=== PATIENT | male | born 1975 | race Two or more races ===

== ENCOUNTER 2022-02-15 08:00 | Outpatient (CLI) | payer OTHER | END 2022-02-15 23:59 | disposition home or self-care (01) | LOC: LAB 08:00 | PROVIDERS: ATTEND Specialist | DX: Z01.812 Encounter for preprocedural laboratory examination (principal); Z20.822 Contact with and (suspected) exposure to COVID-19 | CPT/HCPCS: U0003; C9803 ==

== ENCOUNTER 2022-02-19 05:13 | Day surgery (SDC) | payer OTHER ==
[~2022-02-19 05:13] MED LIST: ANESTHESIA TRAY IN PYXIS 1 EA TRAY MC ONE
--- NOTE | 2022-02-19 06:00 | NUR ---
MS RN NOTES RECEIVED AMBULATORY DAY SURGERY,A/O X4,NO SOB,GOING FOR RIGHT SHOULDER ARTHROSCOPY,ACROMIOPLASTY,MAJOR DEBRIDEMENT UNDER DR SUTTON,TO FOLLOW CASE.CONSENT ON CHART,WITH KNOWN ALLERGY TO XARELTO AND PENICILLIN.AWAITING TO BE MEDICAL RECEPTIONIST ASSISTANT TO OR.
[2022-02-19] MEDS ORDERED: BUPIVACAINE 0.5 % PF 150 MG/30 ML VIAL ONE (06:37)
[2022-02-19] MEDS ORDERED: methylPREDNISolone ACETATE 80 MG/ML VIAL ONE (06:37)
[2022-02-19] MEDS ORDERED: EPINEPHRINE (1:1000) 1 MG/ML AMPUL ONE (06:37)
[2022-02-19] MEDS ORDERED: BUPIVACAINE 0.25% 75 MG/30 ML VIAL ONE (06:38)
--- NOTE | 2022-02-19 06:50 | NUR ---
MS DAY SURGERY NURSE REPORTED BY ELIGIO FERMIN,PATIENT HAS 175.00 DOLLARS,ACCOUNTED BY ELIGIO,REFUSED TO BE TAKEN TO SAFE.
[2022-02-19] MEDS ORDERED: ROCURONIUM BROMIDE 50 MG/5 ML ONE (08:22)
[2022-02-19] MEDS ORDERED: MIDAZOLAM HCL 2 MG/2ML VIAL ONE (08:22)
[2022-02-19] MEDS ORDERED: HYDROMORPHONE INJ 2 MG/ML DISP.SYRIN ONE (08:22)
[2022-02-19] MEDS ORDERED: FAMOTIDINE/PF INJ 20 MG/2 ML VIAL IV ONE (08:22)
[2022-02-19] MEDS ORDERED: CLINDAMYCIN IV RTU IN D5W 50 ML ONE (08:25)
[2022-02-19] MEDS ORDERED: HYDROCODONE/APAP 5/325MG TABLET PO PRN (10:00)
[2022-02-19] MEDS ORDERED: HYDROMORPHONE 1 MG/1 ML DISP.SYRIN ONE (10:00)
--- NOTE | 2022-02-19 10:25 | NUR ---
RN NOTES PATIENT IS BACK FROM RECOVERY ROOM POST RIGHT SHOULDER ATHROSCOPY WITH ACROMIOPLASTY AND MAJOR DEBRIDEMENT ENDORSED BY CANDICE SERVIN. PATIENT IS AWAKE AND A/O X4. ON ROOM AIR TOLERATING WELL. NO SOB NOTED. NOT IN DISTRESS. PATIENT IS REQUESTING FOR DR. SUTTON TO CHANGE HIS PRN PAIN MEDICATION FROM NORCO TO PERCOCET. LEFT A MESSAGE TO HIS OFFICE REGARDING PATIENT'S CONCERN. VITAL SIGNS CHECKED: STABLE. SAFETY MEASURES IN PLACED. CALL LIGHT WITHIN REACH. BED ON LOWEST LOCKED POSITION, SIDE RAILS UP X2. WILL CONTINUE TO MONITOR.
[2022-02-19] MEDS ORDERED: MEPERIDINE HCL/PF 100 MG/2 ML AMPUL IM STA (14:33)
[2022-02-19] MEDS ORDERED: hydrOXYzine PAMOATE 25 MG CAPSULE PO STA (14:48)
[2022-02-19] MEDS ORDERED: MEPERIDINE25 MG SYR 25 MG/ML VIAL IM STA (14:49)
[2022-02-19] MEDS ORDERED: hydrOXYzine HCL INJ 25 MG/ML VIAL IM ONE (15:00)
--- NOTE | 2022-02-19 15:25 | NUR ---
MULTIPLE KNIFE EDGE TRIMMER OPERATOR NOTES PATIENT WAS ORDERED BY DR. SUTTON FOR DISCHARGE WHEN COMFORTABLE AND STABLE. VITAL SIGNS HAS BEEN STABLE SINCE HE WAS BROUGHT UP FROM THE RECOVERY ROOM. DEMEROL 50MG IM AND VISTARIL PO GIVEN TO PATIENT PRIOR TO DC. PATIENT IS A/O X4. ON ROOM AIR TOLERATING WELL. AMBULATORY AND STEADY. PROVIDED INSTRUCTIONS TO HAVE A FOLLOW-UP CHECK UP WITH DR. SUTTON IN A WEEK AFTER DC. IV LINE AND NAME WRIST BAND REMOVED. ACCOMPANIED PATIENT TO THE LOBBY VIA WHEELCHAIR WITH NEPHEW AND LEFT VIA PRIVATE CAR IN STABLE CONDITION. MD AND CHARGE NURSE ARE AWARE OF THE DISCHARGE.
== END 2022-02-19 18:00 | disposition home or self-care (01) ==
LOC: DS 05:13 → MED 05:14 → UNDOADMIN 05:14 → UNDODISIN 16:25 → DS 18:00
PROVIDERS: ATTEND Specialist
DX: M75.41 Impingement syndrome of right shoulder (principal); G62.9 Polyneuropathy, unspecified; M65.811 Other synovitis and tenosynovitis, right shoulder; K21.9 Gastro-esophageal reflux disease without esophagitis; Z98.890 Other specified postprocedural states; Z79.899 Other long term (current) drug therapy; Z20.822 Contact with and (suspected) exposure to COVID-19
CPT/HCPCS: 29823; 29826; 87081; J3490 ×5; J1040; J1100; J2704; J0171; J1170 ×2; Q0177; J0330; J1885; J2405; J7030; J2250; A4217; A4565; G0378; J3410